=== PATIENT | male | born 1935 | race Caucasian/White ===

== ENCOUNTER 2017-04-25 07:38 | Day surgery (SDC) | payer MEDICARE, OTHER ==
[~2017-04-25] VITALS: Ht 172.7 cm; Wt 87.1 kg
[~2017-04-25 07:38] MED LIST: AMLO10TA4 PO; BRIM10DR2 OP; CLOP75TA16 PO; DICL100G16 TP; INSU100C6 SQ; LEVO50TA8 PO; LEVVL SQ; TIMO15DR12 EACHEYE; TRIA1CAP6 PO
[2017-04-25] MEDS ORDERED: NAPR220C15 PO (09:19)
[2017-04-25] MEDS ORDERED: GABA-529 PO (09:19)
[2017-04-25] MEDS ORDERED: XALAO EACHEYE (09:19)
[2017-04-25] MEDS ORDERED: FENTANYL CITRATE/PF 50MCG/ML 2ML VIAL ONE (10:47)
[2017-04-25] MEDS ORDERED: MIDAZOLAM HCL 5 MG/5 ML VIAL ONE (10:48)
[2017-04-25] MEDS ORDERED: IODIXANOL 320MG/ML 100 ML BOTTLE IV ONE (10:48)
[2017-04-25] MEDS ORDERED: LIDOCAINE HCL 1% 20ML VIAL (Pyxis) INJ ONE (10:48)
[2017-04-25] MEDS ORDERED: IODIXANOL 320MG/ML 200ML BOTTLE ONE (10:50)
[2017-04-25] MEDS ORDERED: IOVERSOL 240MG/ML 100ML BOTTLE IV ONE (10:52)
[2017-04-25] MEDS ORDERED: HEPARIN SODIUM 1,000 UNIT/1ML VIAL IV ONE (10:56)
[2017-04-25] MEDS ORDERED: ACETAMINOPHEN 325MG TABLET PO PRN (11:45)
[2017-04-25] MEDS ORDERED: ONDANSETRON HCL 4MG/2ML VIAL IV PRN (11:45)
== END 2017-04-25 17:35 | disposition home or self-care (01) ==
LOC: CCL 07:38
PROVIDERS: ATTEND Specialist
DX: I73.9 Peripheral vascular disease, unspecified (principal); E03.9 Hypothyroidism, unspecified; E11.9 Type 2 diabetes mellitus without complications; E78.5 Hyperlipidemia, unspecified; I25.10 Atherosclerotic heart disease of native coronary artery without angina pectoris; I25.2 Old myocardial infarction; Z79.4 Long term (current) use of insulin; Z95.1 Presence of aortocoronary bypass graft
CPT/HCPCS: 36246; 75710; 82962; C1760; C1769; C1893; J1644; J2250; J3010; J3490; Q9967